=== PATIENT | female | born 1990 | race Hispanic/Latino ===

== ENCOUNTER 2016-11-20 13:10 | Inpatient (IN) | payer OTHER ==
[~2016-11-20] VITALS: Ht 162.6 cm; Wt 90.7 kg
[2016-11-20] MEDS ORDERED: Lactated Ringer's 1,000 ML IV PRN (16:47)
[2016-11-20] MEDS ORDERED: Ondansetron 2 mg/mL 2 mL Inj IVPUSH PRN ×2 (16:50→18:10)
[2016-11-20] MEDS ORDERED: Sodium Chloride LOK Flush 10 mL Syringe IVFLUSH PRN (16:50)
[2016-11-20] MEDS ORDERED: Hemorrhage Kit, Post Partum XX ONE ×2 (16:50→21:45)
[2016-11-20] MEDS ORDERED: Carboprost 250 mCg/mL Inj IM PRN ×2 (16:50→21:45)
[2016-11-20] MEDS ORDERED: Oxytocin 10 Unit/mL Inj IM PRN ×2 (16:50→21:45)
[2016-11-20] MEDS ORDERED: Methylergonovine 0.2 mg/mL Inj IM PRN ×2 (16:50→21:45)
[2016-11-20] MEDS ORDERED: Oxytocin 30 Units/500 mL LR 30 UNITS in IV Premix 1 EACH IV PRN ×2 (16:50→21:45)
[2016-11-20] MEDS ORDERED: Oxytocin 30 Units/500 mL LR Premix IV SCH (16:55)
[2016-11-20 16:59] LABS: Mean Corpuscular Hemoglobin 26.7 pg (27.0-35.0); Mean Corpuscular Volume 83.4 fL (81-100)
[2016-11-20] MEDS ORDERED: PREN1TAB87 PO (17:08)
[2016-11-20] MEDS ORDERED: ALBU8.5H2 INHALATION (17:09)
[2016-11-20] MEDS ORDERED: fentaNYL 2 mCg/mL-Bupivicaine 0.125% 100 mL Premix EPIDURAL ONE (18:02)
[2016-11-20] MEDS ORDERED: Lactated Ringer's 500 ML IV ONE (18:07)
[2016-11-20] MEDS ORDERED: Lactated Ringer's 1,000 ML IV SCH ×2 (18:07→21:43)
--- NOTE | 2016-11-20 18:09 | PCM.HPANE ---
Patient Data Surgeon Admitting Provider:Obdulia Camargo MD Attending Provider:Obdulia Camargo MD Primary Care Physician:Chelo Mar MD Other Provider:Lenard Chaudhry Anesthesia Reason for Visit Term Early Labor TERM EARLY LABOR Ht/WT & BMI Body Mass Index Allergies Coded Allergies: No Known Allergies (Unverified Allergy, 05/12/11) Past Anesthesia History Anesthesia History: Denies:: Abnormal Airway, Anesthesia Reactions, Difficult Intubation, Fam Anesthesia Reaction, Fam Malignant Hypertherm, Malignant Hyperthermia Diabetes History Hx Diabetes?: No Medications Reported Medications Albuterol HFA (Proair HFA)8.5 Gm Hfa.aer.ad2 Puffs INHALATION Q4H #1 INHALER 11/20/16 Vit W-Ca,Fe,FA(<1 mg) ( Vitamins)1 Each Tablet1 Each PO DAILY 11/20/16 History History of ENT Problems?: No HEENT History: Denies:: Abnormal Airway Cataracts Difficult Intubation Dysphagia Glaucoma Hearing Problem Sinus Problem TMJ Denture Type: None Teeth Condition: Within Normal Limits Hx of Heart Problems?: No Cardiovascular History: Denies:: AICD Abdominal Aortic Aneurism Atrial Fibrillation Cardiac Surgery Chest Pain Congestive Heart Failure Coronary Artery Disease Edema Heart Murmur Hypertension Irregular Heartbeat Pacemaker Peripheral Vascular Rheumatic Fever Thrombophlebitis Valvular Heart Disease Hx of Respiratory Problem?: Yes Respiratory History: Positive for:: Asthma Denies:: COPD Chest Surgery Cough Dyspnea Emphysema Hemoptysis Oxygen Administration Pneumonia Pulmonary Embolism Tuberculosis Use of C-PAP Machine Use of Inhalers / NEBS Hx Neurologic Problems?: No Hx of GI Problems?: Yes Gastrointestinal History: Positive for:: Heartburn Hx of Problems?: No HX of Peritoneal Dialysis: No Female Hx: Positive for:: Currently Hx Musculoskeletal Problems?: No Hx Surgeries?: No Smoking Status: Never Smoker Stop/Bang Treated for Sleep Apnea?: No Do You Have a CPAP Machine?: No PRO Risk Assessment: Low Risk, <3 Yes Risk Assessment Category Category 1A: Patient has history of documented sleep apnea, and HAS NOT received any narcotic, sedative or anesthesia administration during this stay. Category 1B: Patient has history of documented sleep apnea, and HAS received any narcotic , sedative or anesthesia administration during this stay Category 2: Patient has SUSPECTED Obstructive Sleep Apnea, and HAS received any narcotic , sedative or anesthesia administration during this stay. Category 3: Patient has SUSPECTED Obstructive Sleep Apnea and HAS NOT received narcotic, sedative or anesthesia administration during this stay. Category 4: Outpatient in Procedural Areas with known sleep apnea or who screen positive for High Risk via the STOP/BANG questionnaire. Exam Exam General Appearance: Oriented X3 HEENT/AIRWAY: MP 2 Lungs: Normal Air Movement Heart: Regular Rate/Rhythm Meds/Labs/Diagnostics Admission Meds Current Medications Oxytocin/Lactated Ringer's/Premix (Pitocin 30 Units/500 mL LR/ IV Premix) 500 ml @ 0 mls/hr Q0M IV Last administered on 11/20/16t 17:04; Start 11/20/16 at 16 :55 Labs Test 11/20/16 14:40 White Blood Count 13.1th/mm3 (3.8-10.1) Red Blood Count 4.34mil/mm3 (3.90-5.20) Hemoglobin 11.6g/dL (12.0-15.6) Hematocrit 36.2% (35.0-46.0) Mean Corpuscular Volume 83.4fL (81-100) Mean Corpuscular Hemoglobin 26.7pg (27.0-35.0) Mean Corpuscular Hemoglobin Concent 32.0% (32.0-37.0) Red Cell Distribution Width 14.8% (12.3-15.4) Platelet Count 285bil/L (150-400) Hold Purple Top Tube Received (Received) Plan Impression Patient chart reviewed, patient interviewed and anesthestic plan with risks, benefits, and alternatives discussed, and informed consent obtained. ASA Physical Status: ASA3 Severe Disease Anesthetic Plan: Epidural Bene/Risks/Altern/Consents: Yes HP Complete Prior to Induction: Yes Ji Reza MD Nov 20, 2016 18:09
[2016-11-20] MEDS ORDERED: fentaNYL 2 mCg/mL-Bupiv 0.125% 100 ML EPIDURAL SCH (18:10)
[2016-11-20] MEDS ORDERED: EPHEDrine Sulfate 50 mg/mL Inj IVPUSH PRN (18:10)
[2016-11-20] MEDS ORDERED: Phenylephrine/NS-PF 100 mCg/mL 5 mL Syringe IVPUSH PRN (18:10)
[2016-11-20] MEDS ORDERED: Atropine 1 mg/10 mL (Code) Syringe IVPUSH PRN (18:10)
--- NOTE | 2016-11-20 21:43 | PCM.OBVAG ---
Vaginal Delivery Date of Service Nov 20, 2016 Pre Operative Diagnosis Pre Operative Diagnosis Active Labor Post Operative Diagnosis Post Operative Diagnosis Term Labor Procedure Procedure: Spontaneous vaginal delivery Obstetical Procedure: Normal Spontaneous Vaginal Delivery Coating Inspector/Embossing Toolsetter Provider and Embossing Toolsetter: Jose Cotter MD Indication for Procedure Induction: Active labor Findings Obstetrical Findings: [place] (Male), Cord (3 Vessel), Weight (2761 grams), Presentation (Vertex), 1 minute (9), 5 minutes (9), Placenta (Intact/Normal) Analgesia/Medications Obstetrical Anesthesia: Epidural Procedure Details Procedure Details 26 y/o who presented to the [facility] with SROM and in early labor. She was started on Pitocin and became completely dilated at 2115 hrs. and delivered a male her spontaneous vaginal delivery at 2123 hours. The placenta was delivered intact with a three-vessel cord at 21:27 hrs. There were no nuchal cords. On inspection of the vagina cervix and perineum there were no lacerations appreciated. Sponge counts were correct 2 at the end of the procedure. Blood Loss & Administration Estimated Blood Loss: 250 Blood Admin during procedure: No Post Procedure Plan Post delivery Condition: Mom stable Jose Cotter MD Nov 20, 2016 21:43
[2016-11-20] MEDS ORDERED: Benzocaine (Dermoplast) 20% 60 Gm Spray TOPICAL PRN (21:45)
[2016-11-20] MEDS ORDERED: LANOlin HPA 7 Gm Ointment TOPICAL PRN (21:45)
[2016-11-20] MEDS ORDERED: Witch Hazel-Glycerin Pads TOPICAL PRN (21:45)
--- NOTE | 2016-11-20 23:25 | HP ---
[address] [address] HISTORY AND PHYSICAL PATIENT: KEVIN COLLINS : 1990 MR#: [id number] ADMIT: 11/20/2016 JOB ID: [id number] CHIEF COMPLAINT: Leaking fluid. HISTORY OF PRESENTING ILLNESS: This is a 4, para 2-0-1-2, at 38 weeks and 0 days with expected date of delivery of December 04, 2016, dated by eight weeks ultrasound. Presented with a history of leaking small amount of fluid noted at 10 a.m. with mild irregular contractions. At presentation to the hospital, positive ROM Plus test today and cervix on admission was 2.5 cm, 70%. On reassessment two hours later was 3 cm and 70%. Contractions every 3-5 minutes with good movements. This complicated with: 1. Asthma, on albuterol inhaler. 2. Rh negative. Received RhoGAM on September 11, 2016. 3. History of lung surgery as a child. 4. Abnormal Pap smear, ASCUS, on May 09, 2016. HPV negative. 5. History of child with hypospadias. 6. History of child with cleft lip and cleft palate. 7. History of SAB with no suction D and C. GYNECOLOGIC HISTORY: Last menstrual period February 18, 2016. HANNAH by last menstrual period is November 24, 2016, with 10 day discrepancy of eight weeks ultrasound. Finally, HANNAH is based on eight week ultrasound. The patient denies history of sexually transmitted infections. Denies history of abnormal Pap smear beside the last Pap smear which was ASCUS with HPV negative. The plan is to repeat Pap smear in three years. PAST OBSTETRIC HISTORY: 1. First was 2000 was a spontaneous with no complications and no medical intervention. 2. Second was in 2010. Outcome was a spontaneous vaginal delivery at 40 weeks gestation, 10 hour labor. Outcome was a male , 6.7 pounds delivered at [facility]. The had hypospadias. 3. Third was in 2014, delivered via spontaneous vaginal delivery at 40 weeks and 1 day gestation. Length of labor was five hours, delivered a male infant, 7.6 pounds, in [place]. Had a cleft lip and cleft palate. The patient did have epidural in both deliveries. PAST MEDICAL HISTORY: Asthma, on albuterol inhaler p.r.n. PAST SURGICAL HISTORY: Lung surgery as a child. FAMILY HISTORY: Positive for twining in the maternal side. History of REFINING ENGINEER cancer in maternal grandmother. History of prostate cancer in maternal grandfather and maternal uncle. SOCIAL HISTORY: Denies smoking, alcohol, or illicit drug abuse. MEDICATIONS: vitamins and albuterol inhaler. ALLERGIES: No known drug allergies. LABORATORIES: Blood type is O-negative. Rubella immune. RPR nonreactive. Hepatitis B surface antigen nonreactive. HIV nonreactive. Urine culture contaminated. Diabetes screening negative at 27 weeks, was 118. Hematocrit was 36% at 27 weeks. Antibody screening negative at 10 weeks. Gonorrhea and Chlamydia screening negative on May 09, 2016. Group B strep screening negative on October 30, 2016. ADMISSION LABORATORIES: CBC: White blood cells 13.1, hemoglobin 11.6, hematocrit 36.2, platelets 285. PHYSICAL EXAMINATION: heart tones baseline 135, moderate variability, positive accelerations, no decelerations. Contractions every four minutes. Vital signs: Blood pressure 133/66, heart rate 83, temperature 36.1. General: Alert, oriented to time, place and person. Head: Normocephalic, atraumatic. Neck: Supple. Chest: Equal air entry bilaterally. No added sounds. Cardiovascular: Regular rate and rhythm. Abdomen: Gravid. No tenderness. Estimated weight by Ricco's 7 pounds. Cervical exam: Cervix is 4 cm, 80% and -2. Intrauterine pressure catheter was placed without difficulty. Lower extremities: Positive pulses bilaterally. No edema. ASSESSMENT: 1. This is a 4, para 2-0-1-2, at 38 weeks and 0 days gestation with spontaneous rupture of membranes on augmentation with Pitocin. GBS negative. Rh negative. 2. Asthmatic. PLAN: Continue to increase Pitocin as per protocol. The patient is planning for epidural for pain management when needed in labor.
[2016-11-21] MEDS ORDERED: Sodium Chloride LOK Flush 10 mL Syringe IVFLUSH SCH (00:30)
[2016-11-21 07:35] LABS: Mean Corpuscular Hemoglobin 26.4 pg (27.0-35.0); Mean Corpuscular Volume 83.3 fL (81-100)
[2016-11-21] MEDS: HYDROcodone-APAP 5-325 mg Tablet PO PRN ×2 (13:14→19:51)
--- NOTE | 2016-11-21 18:20 | PCM.DIOB ---
Obstetrical Disch Instruction Date of Service: Nov 21, 2016 Dates of Hospitalization Date of Hospital Admission Nov 20, 2016 at 14:03 Providers Admitting Physician: Obdulia Camargo MD Primary Care Physician: Chelo Mar MD Attending Physician: Obdulia Camargo MD Discharge Diagnosis Discharge Diagnosis Spontaneous vaginal delivery Problems: Diet Discharge Diet: No restrictions Activity Discharge Activity-General: Pelvic Rest for 6 weeks (no tampon, douching nor sex), Activity as pain allows, No lifting >15 pounds for 2 weeks, No lifting > 10 pounds for 4-6 weeks Dressing and Incisional Care Hygiene: May shower, Perineal care, Sitz bath Follow Up Plan Follow-up Provider (F9): Jonny Sanabria MD Follow-up appointment: Weeks (Two) Call your provider for: Fever or Chills, Shortness of breath, Heavy vaginal bleeding, Heavy bleeding, Epigastric pain, Excessive constipation, Vaginal discomfort, Red painful breasts, Other (Headache, change in vision, nausea / vomiting, abdominal pain, leg/s swelling, pain or change in color. ) Obdulia Camargo MD Nov 21, 2016 18:20
[2016-11-21] MEDS ORDERED: IBUP-1827 PO (18:22)
[2016-11-21] MEDS ORDERED: DOCU-41 PO (18:22)
[2016-11-21] MEDS ORDERED: HYDR-4003 PO (18:22)
--- NOTE | 2016-11-21 18:24 | PCM.DC.OB ---
Obstetrical Discharge Summary Date of Service Nov 21, 2016 Date of hospital admission Nov 20, 2016 at 14:03 Providers Admitting Physician: Rayshawn Carrillo MD Primary Care Physician: Chelo Mar MD Attending Physician: Rayshawn Carrillo MD Hospital Course: Discharge Diagnosis Discharge Diagnosis Spontaneous vaginal delivery Laboratory Tests 72 Hours Test 11/20/16 14:40 11/21/16 07:20 White Blood Count 13.1th/mm3 (3.8-10.1) 13.5th/mm3 (3.8-10.1) Red Blood Count 4.34mil/mm3 (3.90-5.20) 4.13mil/mm3 (3.90-5.20) Hemoglobin 11.6g/dL (12.0-15.6) 10.9g/dL (12.0-15.6) Hematocrit 36.2% (35.0-46.0) 34.4% (35.0-46.0) Mean Corpuscular Volume 83.4fL (81-100) 83.3fL (81-100) Mean Corpuscular Hemoglobin 26.7pg (27.0-35.0) 26.4pg (27.0-35.0) Mean Corpuscular Hemoglobin Concent 32.0% (32.0-37.0) 31.7% (32.0-37.0) Red Cell Distribution Width 14.8% (12.3-15.4) 14.6% (12.3-15.4) Platelet Count 285bil/L (150-400) 235bil/L (150-400) Hold Purple Top Tube Received (Received) Disposition: home. Discharge Condition: stable. Diet Discharge Diet: No restrictions Activity Discharge Activity-General: Pelvic Rest for 6 weeks (no tampon, douching nor sex), Activity as pain allows, No lifting >15 pounds for 2 weeks, No lifting > 10 pounds for 4-6 weeks Dressing and Incisional Care Hygiene: May shower, Perineal care, Sitz bath Follow Up Plan Follow-up Provider (F9): Jonny Sanabria MD Follow-up appointment: Weeks (Two) Call your provider for: Fever or Chills, Shortness of breath, Heavy vaginal bleeding, Heavy bleeding, Epigastric pain, Excessive constipation, Vaginal discomfort, Red painful breasts, Other (Headache, change in vision, nausea / vomiting, abdominal pain, leg/s swelling, pain or change in color. ) Albuterol HFA (Proair HFA) 8.5 Gm Hfa.aer.ad 2 PUFFS INHALATION Q4H (Reported) Last Taken: Unknown Dose on 11/09/16 Docusate Sodium (Colace) 100 Mg Capsule 100 MG PO BID Prescribed by: RAYSHAWN CARRILLO MD Hydrocodone-Acetaminophen 5-325 mg (Hydrocodone-Acetaminophen 5-325 mg) 1 Each Tablet 1-2 TABLET PO Q4H PRN PRN For Pain Prescribed by: RAYSHAWN CARRILLO MD Ibuprofen (Ibuprofen) 600 Mg Tablet 600 MG PO QID PRN PRN For Pain Prescribed by: RAYSHAWN CARRILLO MD Vit W-Ca,Fe,FA(<1 mg) ( Vitamins) 1 Each Tablet 1 EACH PO DAILY (Reported) Last Taken: Unknown Dose on 11/19/16 Rayshawn Carrillo MD Nov 21, 2016 18:23
[2016-11-21 21:44] VITALS: BP 113/59; PULSE 71; RESP 16
== END 2016-11-21 22:37 | disposition home or self-care (01) | DRG 775 ==
LOC: FBCO 13:10 → FBC 14:03
PROVIDERS: ADMIT Obstetrics & Gynecology; ATTEND Obstetrics & Gynecology
PROC: 10E0XZZ Delivery of Products of Conception, External Approach (ICD-10-PCS; principal; 2016-11-20)
DX: O99.52 Diseases of the respiratory system complicating childbirth (principal); J45.909 Unspecified asthma, uncomplicated; Z3A.38 38 weeks gestation of pregnancy; Z37.0 Single live birth